=== PATIENT | male | born 1950 | race Caucasian/White ===

== ENCOUNTER 2017-09-02 16:33 | Emergency (ER) | payer MEDICARE, BC ==
[2017-09-02] MEDS ORDERED: Aspirin Low Dose CHEW TAB* 81 MG PO ONE (17:45)
--- NOTE | 2017-09-02 18:31 | RAD ---
Indication: Chest pain with pain radiating between shoulder blades. Nonsmoker. Comparison: January 04, 2016 Technique: Upright AP 1800 hours Report: Clear lungs and pleural spaces. Negative for pneumothorax. The heart, pulmonary vasculature, and mediastinal contours are unremarkable. Unremarkable osseous structures and soft tissue contours. IMPRESSION: No evidence for acute intrathoracic disease.
[2017-09-02 18:38] LABS: Hematocrit 38 % (42-52); Hemoglobin 12.8 g/dl (14.0-18.0); Mean Corpuscular HGB Conc 34 g/dl (31-36); Mean Corpuscular Hemoglobin 32 pg (27-31); Mean Corpuscular Volume 95 fL (80-94); Mean Platelet Volume 9 um3 (7.4-10.4); Red Blood Count 4.03 10^6/ul (4.0-5.4); Red Cell Distribution Width 13 % (10.5-15); White Blood Count 4.9 10^3/ul (3.5-10.8)
--- NOTE | 2017-09-02 18:40 | ED ---
Iwona Danielle Gabriel, scribed for Roman Ratliff MD on 09/02/17 at 1739 . Complex/Multi-Sys Presentation - HPI Summary HPI Summary: This patient is a 66 year old M presenting to [facility] with a chief complaint of increased burping for a week. He states that the symptoms come in intermittent episodes. Symptoms alleviated by lying down. Patient reports a pain between his shoulder blades that occurred while raking leaves. Patient denies edema, SOB, dyspnea, increased nausea (from baseline), diaphoresis (increased from baseline) . - History Of Current Complaint Chief Complaint: EDChestPainROMI Time Seen by Provider: 09/02/17 17:24 Hx Obtained From: Patient Onset/Duration: Lasting Weeks - a week, Still Present Severity Currently: None Associated Signs And Symptoms: Positive: Other - Patient denies edema, SOB, dyspnea, increased nausea (from baseline), diaphoresis (increased from baseline) . - Allergies/Home Medications Allergies/Adverse Reactions: Allergies Allergy/AdvReac Type Severity Reaction Status Date / Time No Known Allergies Allergy Verified 09/02/17 16:40 PMH/Surg Hx/FS Hx/Imm Hx Previously Healthy: No Endocrine/Hematology History: Reports: Hx Diabetes Musculoskeletal History: Reports: Hx Arthritis Infectious Disease History: No Infectious Disease History: Denies: Traveled Outside the [place] in Last 30 Days - Family History Known Family History: Positive: Cardiac Disease - Father [place] @ Ae 62 - Social History Alcohol Use: Weekly Alcohol Amount: 1 beer/week Substance Use Type: Reports: None Hx Tobacco Use: No Smoking Status (MU): Never Smoked Tobacco Review of Systems Negative: Skin Diaphoresis - no increase from baseline Respiratory: Other - dyspnea Negative: Shortness Of Breath Negative: Nausea - no increase from baseline Positive: Other - pain between shoulder blades . Negative: Edema - no increase from baseline All Other Systems Reviewed And Are Negative: Yes Physical Exam - Summary Physical Exam Summary: The skin is warm and dry and skin color reflects adequate perfusion. HEENT: ~The head is normocephalic and atraumatic. The pupils are equal and reactive. The conjunctivae are clear and without drainage. ~Nares are patent and without drainage. ~Mouth reveals moist mucous membranes and the throat is without erythema and exudate. ~The external ears are intact. The ear canals are patent and without drainage. The tympanic membranes are intact. Neck is supple with full range of motion and non-tender. There are no carotid bruits. ~There is no neck vein distension. Respiratory: Chest is non-tender. ~Lungs are clear to auscultation and breath sounds are symmetrical and equal. Cardiovascular: Heart is regular rate and rhythm. ~There is no murmur or rub auscultated. ~~There is no peripheral edema and pulses are symmetrical and equal. Abdomen: The abdomen is soft and non-tender. ~There are normal bowel sounds heard in all four quadrants and there is no organomegaly palpated. Musculoskeletal: There is no back pain noted. ~Extremities are non-tender with full range of motion. ~There is good capillary refill. ~There is no peripheral edema or calf tenderness elicited. Neurological: Patient is alert and oriented to person, place and time. ~The patient has symmetrical motor strength in all four extremities. ~Cranial nerves are grossly intact. Deep tendon reflexes are symmetrical and equal in all four extremities. Psychiatric: The patient has an appropriate affect and does not exhibit any anxiety or depression Triage Information Reviewed: Yes Vital Signs On Initial Exam: Initial Vitals Temp Pulse Resp BP Pulse Ox 97.6 F 64 15 162/92 98 09/02/17 16:36 09/02/17 16:36 09/02/17 16:36 09/02/17 16:36 09/02/17 16:36 Vital Signs Reviewed: Yes - Kris Coma Scale Coma Scale Total: 15 Diagnostics - Vital Signs Vital Signs Temp Pulse Resp BP Pulse Ox 09/02/17 16:36 97.6 F 64 15 162/92 98 - Laboratory Lab Statement: Any lab studies that have been ordered have been reviewed, and results considered in the medical decision making process. - Radiology CXR Radiology Interpretation Completed By: Radiologist - No evidence for acute intrathoracic disease. ED physician has reviewed this radiology report and agrees. - EKG 16:51 Cardiac Rate: NL EKG Rhythm: Sinus Bradycardia - 57 BPM Complex Multi-Symp Course/Dx Course Of Treatment: Mr. Gutierrez was sent over from Dr. Pollard's office with a concern for an atypical CP. He has been burping a lot and has had some mid back pain after raking leaves a couple days ago. It is improved right now but he can reproduce it by twisting to the right. His initial labs are normal and he is awaiting a delayed troponin. If it is also negative, he will go home for F /U with Dr. Pollard. - Diagnoses Provider Diagnoses: Chest pain Discharge - Discharge Plan Condition: Stable Disposition: HOME Patient Education Materials: Chest Pain (ED) Referrals: Tam Pollard MD [Primary Care Provider] - Additional Instructions: Follow up with Dr. Pollard in 3-4 days. RETURN TO THE EMERGENCY DEPARTMENT FOR CHANGING OR WORSENING SYMPTOMS. The documentation as recorded by the Iwona green Gabriel accurately reflects the service I personally performed and the decisions made by , Roman Ratliff MD.
[2017-09-02 18:54] LABS: Albumin 3.8 g/dL (3.2-5.2); BUN/Creatinine Ratio 14.2 (8-20); EGFR African American 89.9 (>60); EGFR Non-African American 69.9 (>60); Potassium 3.9 mmol/L (3.5-5.0); Total Bilirubin 0.5 mg/dL (0.2-1.0); Total Protein 6.8 g/dL (6.4-8.9)
[2017-09-02 18:56] LABS: Troponin I 0.01 ng/mL (<0.04)
[2017-09-02 22:30] VITALS: BP 128/66
--- NOTE | 2017-09-03 15:42 | ED ---
Ludmila Danielle Alfonso, scribed for Stephanie James MD on 09/02/17 at 1924 . Progress - Progress Note Progress Note: This patient was signed out from Dr. Ratliff, pending disposition, awaiting labs. Reevaluation at 1921: Discussed lab results and necessity for a second troponin. He reports no CP at this time and that I was burping a lot before. Blood pressure at this time is 137/73. 100 02 saturation on room air. Respiration rate of 17. Reevaluation at 2124: Reviewed labs, 3 hr troponin is negative. Pt remains pain free and agrees with plan for discharge. He understands that he needs to follow up with Dr. Pollard in 1-2 days for further evaluation. The patients condition is stable and he will be discharged to home with Dx of CP. Course/Dx - Diagnoses Provider Diagnoses: Chest pain The documentation as recorded by the Ludmila green Alfonso accurately reflects the service I personally performed and the decisions made by , Stephanie James MD.
== END 2017-09-02 22:30 | disposition home or self-care (01) ==
LOC: ED 16:33
DX: R07.9 Chest pain, unspecified (principal)
CPT/HCPCS: 36415; 71010; 80053; 83605; 84484; 85025; 85379; 93005; 99283